=== PATIENT | female | born 1940 | race Caucasian/White ===

== ENCOUNTER 2022-12-29 11:13 | Emergency (ER) | payer OTHER, SELFPAY ==
--- NOTE | ~2022-12-29 | CT_ITS ---
EXAMINATION: CT HEAD WITHOUT CONTRAST CLINICAL INFORMATION: Head pain status post fall. COMPARISON: None TECHNIQUE: Contiguous axial imaging was performed from the skull base to vertex without intravenous administration of contrast. Coronal and sagittal reformatted images were obtained. This CT examination was performed using dose optimization techniques as appropriate, variously including the following: *Automated exposure control *Adjustment of mA and/or kV according to patient size (this includes techniques or standardized protocols for targeted exams where dose is matched to indication/reason for exam; i.e. extremities or head) *Use of iterative reconstruction technique DLP: 675.28 mGy-cm FINDINGS: There is mild widening of the cortical sulci and associated ventriculomegaly. The lateral ventricles are symmetrical. The third and fourth ventricles are in their normal midline position. The basilar and prepontine cisterns are unremarkable. Mild periventricular microvascular changes are seen. There is no acute intra or extracerebral abnormality. There is no mass effect or midline shift. Sections through the bony calvarium show a small left parietal the table osteoma versus calcified meningioma without surrounding abnormality. There is a small to moderate left posterior parietal occipital subgaleal hematoma without underlying abnormality. The orbits are intact. The paranasal sinuses are clear. The mastoid air cells are clear. CT/CT head/brain wo IV con IMPRESSION: 1. No acute intracranial pathology. 2. Small to moderate left posterior parietal occipital subgaleal hematoma without underlying abnormality.
--- NOTE | ~2022-12-29 | CT_ITS ---
EXAMINATION: CT CERVICAL SPINE WITHOUT CONTRAST CLINICAL INFORMATION: Fall with pain COMPARISON: None TECHNIQUE: Axial imaging with coronal and sagittal reformatted images. This CT examination was performed using dose optimization techniques as appropriate, variously including the following: *Automated exposure control *Adjustment of mA and/or kV according to patient size (this includes techniques or standardized protocols for targeted exams where dose is matched to indication/reason for exam; i.e. extremities or head) *Use of iterative reconstruction technique DLP: 686 mGy-cm FINDINGS: Negative for acute fracture or dislocation. Degenerative change most noted at C3-4. CT/CT cervical spine wo IV con IMPRESSION: No acute fracture or dislocation.
[2022-12-29 11:21] VITALS: BP 143/84; BP 190/120; PULSE 72; PULSE 76; RESP 18; TEMP 36.6; O2SAT 95; O2SAT 98; BMI 28.3
--- NOTE | 2022-12-29 11:26 | ECG_ITS ---
Test Reason : fall Blood Pressure : / mmHG Vent. Rate : 068 BPM Atrial Rate : 068 BPM P-R Int : 180 ms QRS Dur : 144 ms QT Int : 450 ms P-R-T Axes : 054 057 001 degrees QTc Int : 478 ms Sinus rhythm with occasional Premature ventricular complexes and Premature atrial complexes Right bundle branch block Nonspecific ST and T wave abnormality Abnormal ECG No previous ECGs available Referred By: Ysabel Helms Electronically Signed By:ARRON TURK
--- NOTE | 2022-12-29 12:02 | ED_ITS ---
HPI - Fall General Chief Complaint: Fall Stated Complaint: Fall on side of road, poss hit head per EMS Time Seen by Provider: 12/29/22 11:24 Source: patient and EMS Mode of arrival: EMS Limitations: no limitations History of Present Illness HPI Narrative: this is an 82-year-old female with history of hypothyroidism, hypertension who presents to the ER after slip and fall down an embankment. Patient reports she was taking pictures of geese when she lost her balance causing her to fall landing on her back and head. There was no loss of consciousness. Patient reports of upper back discomfort. She denies any headache, vomiting, neck pain, chest pain, abdominal pain. No AC therapy use. Related Data Allergies Allergy/AdvReac Type Severity Reaction Status Date / Time cephalexin [From Keflex] Allergy Rash Verified 12/29/22 11:27 Review of Systems Review of Systems: Yes all other systems are reviewed and are negative Constitutional: Constitutional: Reports no additional constitutional complaints, Denies body ache(s), Denies chills, Denies fever(s), Denies headache(s) and Denies weakness Eyes: Eyes: Reports no additional eye complaints and Denies change in vision ENT: Reports system reviewed and no additional complaints, except as documented, Denies dizziness, Denies headache(s), Denies nasal congestion, Denies nasal discharge and Denies neck pain Cardiovascular: Cardiovascular: Reports no additional cardiovascular complaints, Denies chest pain, Denies leg edema and Denies dyspnea Respiratory: Respiratory: Reports no additional respiratory complaints, Denies cough and Denies dyspnea Gastrointestinal: Gastrointestinal: Reports no additional gastrointestinal complaints, Denies abdominal pain, Denies diarrhea, Denies nausea and Denies vomiting Genitourinary: Genitourinary: Reports no additional female genitourinary complaints and Denies urinary incontinence Musculoskeletal: Musculoskeletal: Reports no additional musculoskeletal complaints, Reports back pain, Denies arthralgias, Denies joint swelling, Denies neck pain, Denies numbness and Denies tingling Integumentary/Breasts: Skin/Breast: Reports system reviewed and no additional complaints, except as docu and Denies rash Neurologic: Reports system reviewed and no additional complaints, except as documented, Denies Abnormal speech present, Denies dizziness, Denies headache(s), Denies numbness, Denies tingling and Denies weakness PMFSH Past Medical History Attestation statement: The following information was validated with the patient. Source: old records reviewed and nursing notes reviewed Social History Social History Advance Directives: No Advance Directives Information Provided: Yes Physical Exam Vital Signs: Vital Signs: Last Vital Signs Temp 97.8 F 12/29/22 11:21 Pulse 72 12/29/22 11:21 Resp 18 12/29/22 11:21 BP 143/84 H 12/29/22 11:21 Pulse Ox 95 12/29/22 11:21 O2 Del Method 12/29/22 11:21 BMI result Body Mass Index 28.3 Const: General: cooperative, healthy appearing, comfortable and no acute distress Orientation/consciousness: patient oriented x3 Limitations: no limitations HEENT: Head: Yes normal to inspection, No Carmichael's sign and No raccoon eyes Ears: hearing grossly normal bilaterally and TM's normal bilaterally General nose exam: Normal external nose present Face and sinus: Yes normal facial exam Mouth: Normal oral and palatal mucosa present Throat: Yes posterior oropharynx normal Eyes: General: appearance normal, both eyes and all related structures Pupils: Equal, round and reactive pupils present Neck: Other: Cervical collar in place. No midline tenderness, step-offs deformities Neck: Yes normal visual inspection Chest: Chest palpation & inspection: normal inspection of the chest Resp: Effort & Inspection: normal respiratory effort Auscultation: clear to auscultation bilaterally Cardio: Rate: regular rate Rhythm: regular rhythm Peripheral pulses: Peripheral pulses 2+ throughout GI: Inspection: Yes normal to inspection Palpation (GI): Soft to palpation and nontender Auscultation: normal bowel sounds Back/Spine/Pelvis: Other: abrasion to the upper back. No midline tenderness, step-offs or deformities Thoracic/Lumbar Spine: thoracic and lumbar spine normal to inspection Skin: General skin exam: no rashes or lesions noted Neuro: General: patient oriented x3, moves all extremities, no focal motor deficits, normal sensation to monofilament and Unable to assess gait Cranial nerves: Yes CN's II-XII intact bilaterally, Yes Equal, round and reactive pupils present, Yes Bilaterally intact EOM present, Yes Nystagmus not present, Yes Normal facial strength present and Yes Midline tongue present Cognition (Neuro): normal cognition Speech: No Abnormal speech present Gait exam (Neuro): Unable to assess gait Motor exam (neuro): 5/5 motor strength present throughout Sensory Exam: Normal double simultaneous stimulation for sensation Extrem: General: Yes normal to inspection Course Course Course Narrative: CT head and cervical spine show no acute finding. plan for discharge home. Reviewed worrisome signs and symptoms of when to return to the emergency room. Comfortable plan for discharge home (assisted living. Medications Administered Discontinued Medications Generic Name Dose Route Start Last Admin Trade Name Freq PRN Reason Stop Dose Admin Acetaminophen 650 mg 12/29/22 14:01 12/29/22 14:06 Acetaminophen 325 Mg Tablet PO 12/29/22 14:02 650 mg ONCE ONE Administration Medical Decision Making Medical Decision Making [facility] Narrative: this is an 82-year-old female who had a mechanical fall with a head strike with no loss of consciousness. She has a normal neurological exam. She is mildly hypertensive and believe she did take her blood pressure medication this morning. Will obtain CT head and cervical spine. Differential Diagnosis Differential Diagnoses: The differential diagnosis associated with the presentation includes Mechanical fall, contusion, intracranial hemorrhage Lab Data [facility] Lab Attestation statement: I reviewed the patient's lab results. Independent Interpretation I performed an independent interpretation of an: CT Scan Interpretation: I independently reviewed the CT of the head and cervical spine and agree with radiologist's report I independently reviewed the EKG and it shows sinus rhythm with occasional PVCs and PACs with right bundle-branch block, nonspecific ST changes Radiology Impression Discussion of test interpretation with radiology: I have reviewed the radiologist's reading. Radiologist Impression: OMPARISON: None? TECHNIQUE: Axial imaging with coronal and sagittal reformatted images.? This CT examination was performed using dose optimization techniques as appropriate, variously including the following: *Automated exposure control *Adjustment of mA and/or kV according to patient size (this includes techniques or standardized protocols for targeted exams where dose is matched to indication/reason for exam; i.e. extremities or head) *Use of iterative reconstruction technique DLP: 686 mGy-cm FINDINGS: Negative for acute fracture or dislocation. Degenerative change most noted at C3-4. CT/CT cervical spine wo IV con IMPRESSION: No acute fracture or dislocation.? ? ? There is mild widening of the cortical sulci and associated ventriculomegaly. The lateral ventricles are symmetrical. The third and fourth ventricles are in their normal midline position. The basilar and prepontine cisterns are unremarkable. Mild periventricular microvascular changes are seen. There is no acute intra or extracerebral abnormality. There is no mass effect or midline shift. Sections through the bony calvarium show a small left parietal the table osteoma versus calcified meningioma without surrounding abnormality. There is a small to moderate left posterior parietal occipital subgaleal hematoma without underlying abnormality. The orbits are intact. The paranasal sinuses are clear. The mastoid air cells are clear. CT/CT head/brain wo IV con IMPRESSION: 1.? No acute intracranial pathology. 2.? Small to moderate left posterior parietal occipital subgaleal hematoma without underlying abnormality. ? Independent Historian Clinical information obtained from an independent historian. History obtained from or confirmed by: EMS Discharge Plan Discharge Clinical Impression: Contusion of head Patient Disposition: Home, Self-Care Instructions: Contusion in Adults (ED) Additional Instructions: your CT scan of your head and neck are normal take Tylenol for pain as needed follow-up with your primary care doctor after your ER visit Referrals: Sagrario Tirado PA [Primary Care Provider] - 1 week Interventions: ED Discharge Assessment Last Done: 12/29/22 14:10 Discharge Date/Time: 12/29/22 14:10
[2022-12-29] MEDS: Acetaminophen 325 MG TABLET 650 MG PO (14:06)
== END 2022-12-29 14:10 | disposition home or self-care (01) ==
PROVIDERS: Emergency Provider Emergency Medicine; PCP Physician Assistant
DX: S00.93XA Contusion of unspecified part of head, initial encounter (principal); S20.229A Contusion of unspecified back wall of thorax, initial encounter; W17.81XA Fall down embankment (hill), initial encounter; Y93.89 Activity, other specified; Y92.89 Other specified places as the place of occurrence of the external cause; Y99.9 Unspecified external cause status; I10 Essential (primary) hypertension; E03.9 Hypothyroidism, unspecified
CPT/HCPCS: 70450; 72125; 93005; 99284

== ENCOUNTER 2024-06-06 22:06 | Emergency (ER) | payer MEDICARE, SELFPAY ==
--- NOTE | ~2024-06-06 | CT_ITS ---
EXAMINATION: HEAD CT WITHOUT CONTRAST CERVICAL SPINE CT WITHOUT CONTRAST CLINICAL INFORMATION: Fall. COMPARISON: None. TECHNIQUE: Contiguous axial imaging of the head was performed without the administration of IV contrast. Axial multidetector volumetric images were also performed through the cervical spine without intravenous contrast. Multiplanar reconstructed images in coronal and sagittal orientations were submitted. This CT examination was performed using dose optimization techniques as appropriate, variously including the following: *Automated exposure control *Adjustment of mA and/or kV according to patient size (this includes techniques or standardized protocols for targeted exams where dose is matched to indication/reason for exam; i.e. extremities or head) *Use of iterative reconstruction technique DOSE: 918 mGy-cm FINDINGS: HEAD: There is no evidence of acute intracranial hemorrhage or territorial infarction. No abnormal mass-effect or midline shift. No extra-axial fluid collections. Patterson to white matter differentiation is well preserved. Moderate enlargement of the ventricles, sulci, and extra-axial CSF spaces is indicative of parenchymal volume loss. Multiple areas of hypoattenuation in the subcortical and periventricular white matter are most consistent with chronic microangiopathic changes. Calcific atherosclerosis is present within the cavernous segments of the internal carotid arteries. An 8 mm calcification along the inner table of the left parietal calvarium is unchanged and likely corresponds to a small calcified meningioma. Globes are aphakic. Imaged portions of the orbits are unremarkable. There is a small linear band of soft tissue attenuation at the scalp over the left frontotemporal calvarium which may correspond to a soft tissue contusion or scar tissue from prior injury. No hematomas. Calvarium is intact. The sinuses and mastoid air cells are clear. 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 CERVICAL SPINE: Vertebral body heights are normal. No fractures of the vertebral bodies or posterior elements. No acute subluxation. There is grade 1 anterolisthesis of C7 on T1 and T1 on T2. The craniocervical and atlantoaxial articulations are normal. Moderate to severe degenerative disc disease at C3-C4 with more [id number] degenerative disc disease at C4-C5 and C5-C6. Multilevel facet arthropathy. Posterior disc osteophyte complexes produce central canal narrowing at C3-C4. Mild multifocal neural foraminal stenoses. No significant paravertebral soft tissue swelling. Atherosclerotic calcifications are present in the carotid arteries. Imaged portions of the lung apices are clear. CT/CT cervical spine wo IV con IMPRESSION: 1. No acute intracranial pathology. Possible small soft tissue contusion of the left parietal region. No fractures. Moderate cerebral atrophy and chronic white matter microangiopathy. 2. No acute fracture or acute malalignment in the cervical spine. Multilevel degenerative spondylosis in the cervical spine.
--- NOTE | ~2024-06-06 | CT_ITS ---
EXAMINATION: HEAD CT WITHOUT CONTRAST CERVICAL SPINE CT WITHOUT CONTRAST CLINICAL INFORMATION: Fall. COMPARISON: None. TECHNIQUE: Contiguous axial imaging of the head was performed without the administration of IV contrast. Axial multidetector volumetric images were also performed through the cervical spine without intravenous contrast. Multiplanar reconstructed images in coronal and sagittal orientations were submitted. This CT examination was performed using dose optimization techniques as appropriate, variously including the following: *Automated exposure control *Adjustment of mA and/or kV according to patient size (this includes techniques or standardized protocols for targeted exams where dose is matched to indication/reason for exam; i.e. extremities or head) *Use of iterative reconstruction technique DOSE: 918 mGy-cm FINDINGS: HEAD: There is no evidence of acute intracranial hemorrhage or territorial infarction. No abnormal mass-effect or midline shift. No extra-axial fluid collections. Patterson to white matter differentiation is well preserved. Moderate enlargement of the ventricles, sulci, and extra-axial CSF spaces is indicative of parenchymal volume loss. Multiple areas of hypoattenuation in the subcortical and periventricular white matter are most consistent with chronic microangiopathic changes. Calcific atherosclerosis is present within the cavernous segments of the internal carotid arteries. An 8 mm calcification along the inner table of the left parietal calvarium is unchanged and likely corresponds to a small calcified meningioma. Globes are aphakic. Imaged portions of the orbits are unremarkable. There is a small linear band of soft tissue attenuation at the scalp over the left frontotemporal calvarium which may correspond to a soft tissue contusion or scar tissue from prior injury. No hematomas. Calvarium is intact. The sinuses and mastoid air cells are clear. 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 CERVICAL SPINE: Vertebral body heights are normal. No fractures of the vertebral bodies or posterior elements. No acute subluxation. There is grade 1 anterolisthesis of C7 on T1 and T1 on T2. The craniocervical and atlantoaxial articulations are normal. Moderate to severe degenerative disc disease at C3-C4 with more [id number] degenerative disc disease at C4-C5 and C5-C6. Multilevel facet arthropathy. Posterior disc osteophyte complexes produce central canal narrowing at C3-C4. Mild multifocal neural foraminal stenoses. No significant paravertebral soft tissue swelling. Atherosclerotic calcifications are present in the carotid arteries. Imaged portions of the lung apices are clear. CT/CT head/brain wo IV con IMPRESSION: 1. No acute intracranial pathology. Possible small soft tissue contusion of the left parietal region. No fractures. Moderate cerebral atrophy and chronic white matter microangiopathy. 2. No acute fracture or acute malalignment in the cervical spine. Multilevel degenerative spondylosis in the cervical spine.
[2024-06-06 22:14] VITALS: BP 136/88; PULSE 72; O2SAT 99
[2024-06-06 22:16] VITALS: BMI 31.4
--- NOTE | 2024-06-06 22:19 | MHC.EDTECH ---
Walked patient to bathroom changed pull up
[2024-06-06 22:20] VITALS: BP 170/79; PULSE 76; RESP 18; TEMP 36.3; O2SAT 98
[2024-06-06 23:33] VITALS: BP 166/70; PULSE 63; RESP 16; TEMP 36.6; O2SAT 98
--- NOTE | 2024-06-06 23:55 | ED.FALL ---
HPI - Fall General Chief Complaint: Fall Stated Complaint: from home, fall about an hour prior Time Seen by Provider: 06/06/24 23:03 Source: patient Mode of arrival: EMS Limitations: no limitations History of Present Illness ED Provider: ko LIMON Narrative: Patient apparently was walking with a dog went upstairs had problems with balance supposed to use cane was holding her cane to the railing lost balance and fell hitting her right side of the back of the head to the railing with a laceration no loss of consciousness no dizziness no other injuries patient ambulatory otherwise Related Data Allergies Allergy/AdvReac Type Severity Reaction Status Date / Time cephalexin [From Keflex] Allergy Rash Verified 06/06/24 22:25 Review of Systems Review of Systems: Yes all other systems are reviewed and are negative [facility] Social History Social History Alcohol intake: current Alcohol intake frequency: 0-2 drinks per day Alcohol type: wine Smoked in Last 30 Days: No Use of substances other than those prescribed or required for medical reasons: No Advance Directives: No Advance Directives Information Provided: Yes Physical Exam Vital Signs: Vital Signs: Last Vital Signs Temp 97.8 F 06/06/24 23:33 Pulse 63 06/06/24 23:33 Resp 16 06/06/24 23:33 BP 166/70 H 06/06/24 23:33 Pulse Ox 98 06/06/24 23:33 O2 Del Method Room Air 06/06/24 23:33 BMI result Body Mass Index 31.4 Appearance: Alert. Oriented X3. No acute distress. Eyes: PERRLA, No Nystagmus ENT: Pharynx normal. Oral Mucosa moist 1 in laceration right occipital area Neck: Normal inspection. Neck supple. No midline tenderness CVS: Normal heart rate and rhythm. Pulses normal. Respiratory: No respiratory distress. Equal air entry bilateral, no wheezing/rales/rhonchi Abdomen: Soft and nontender. Bowel sounds are present, no mass palpable, no CVA tenderness Skin: Skin warm and dry. Normal skin color. Normal skin turgor. Extremities: No lower extremity edema. No calf tenderness Neuro: Oriented X 3. No motor deficit. No sensory deficit.No cerebellar signs , cranial nerves II-XII intact steady gait Procedures Laceration Laceration 1: Site: scalp Side (If applicable): right Description: linear Depth: simple, single layer Skin layer closed with: other (Claudia#[id number]) Medical Decision Making Independent Interpretation I performed an independent interpretation of an: CT Scan Radiology Impression Discussion of test interpretation with radiology: I have reviewed the radiologist's reading. Discharge Plan Discharge Clinical Impression: Fall (on) (from) other stairs and steps, initial encounter, Laceration of scalp Patient Disposition: Home, Self-Care Instructions: Laceration (ED), Fall Prevention for Older Adults (ED) Additional Instructions: Local care as advised Staple removal in 7-10 days Print Language: Brazilian
[2024-06-07 00:17] VITALS: BP 166/70; PULSE 63; RESP 16; TEMP 36.6; O2SAT 98
== END 2024-06-07 00:17 | disposition home or self-care (01) ==
PROVIDERS: Emergency Provider Internal Medicine; PCP Physician Assistant
DX: S01.01XA Laceration without foreign body of scalp, initial encounter (principal); W10.8XXA Fall (on) (from) other stairs and steps, initial encounter; Y93.K1 Activity, walking an animal; Y92.038 Other place in apartment as the place of occurrence of the external cause; Y99.9 Unspecified external cause status
CPT/HCPCS: 12001; 70450; 72125; 99284

== ENCOUNTER 2024-09-13 09:50 | Emergency (ER) | payer MEDICARE, SELFPAY ==
--- NOTE | ~2024-09-13 | XR_ITS ---
Exams: Right shoulder 3 views right elbow 3 views right humerus 2 views HISTORY: Fall. FINDINGS: Acute obliquely to fracture through the proximal diaphysis of the right humerus. No dislocation. No specific findings indicate a pathologic fracture. Scapula is intact. There is approximately 1 shaft width displacement and overriding noted. Overlying soft tissue swelling. Limited positioning of the elbow. No gross disruption. Radial head and neck intact. XR/XR humerus RT IMPRESSION: Acute fracture of the proximal humerus as above. Electronically signed by: Alfredo Horn MD 09/13/2024 11:54 AM [facility]EL[facility]
--- NOTE | ~2024-09-13 | XR_ITS ---
Exams: Right shoulder 3 views right elbow 3 views right humerus 2 views HISTORY: Fall. FINDINGS: Acute obliquely to fracture through the proximal diaphysis of the right humerus. No dislocation. No specific findings indicate a pathologic fracture. Scapula is intact. There is approximately 1 shaft width displacement and overriding noted. Overlying soft tissue swelling. Limited positioning of the elbow. No gross disruption. Radial head and neck intact. XR/XR shoulder RT min 2V IMPRESSION: Acute fracture of the proximal humerus as above. Electronically signed by: Alfredo Horn MD 09/13/2024 11:54 AM [facility] KEL[facility]
--- NOTE | ~2024-09-13 | CT_ITS ---
EXAM: Noncontrast CT scan of the head and cervical spine. INDICATION: Questionable head strike. COMPARISON: CT head and cervical spine June 06, 2024 TECHNIQUE: Axial slices were obtained from skull base to vertex and displayed. This was followed by helical, multislice, multidetector axial images from the occiput to the upper thorax. Coronal and sagittal reformats of the cervical spine in addition to coronal reformats of the head were obtained at the technologist workstation. DLP: 1071 mGy-cm FINDINGS: HEAD: There is no evidence of acute intracranial hemorrhage or territorial infarction. No abnormal mass effect or midline shift is appreciated. Patterson-white differentiation is well preserved. No extra-axial fluid collections. The ventricular system and cortical sulci are prominent, consistent with volume loss. There are areas of low density in the periventricular and subcortical white matter, most consistent with sequelae of microvascular ischemic change. The osseous structures and soft tissues are normal. There are calcifications of the cavernous internal carotid arteries. The visualized paranasal sinuses and mastoid air cells are well aerated. SPINE: The cervical spine is visualized in its entirety. There is exaggerated kyphosis again noted. Stable mild retrolisthesis of C3 on C4. Normal C1/2 articulation. Cervical vertebral body heights are maintained. Severe degenerative changes of the C3/4 disc space are again noted. There is mild diffuse facet hypertrophy bilaterally. No prevertebral soft tissue swelling. Visualized lung apices are well aerated. CT/CT cervical spine wo IV con IMPRESSION: 1. No acute intracranial pathology. 2. No fractures or dislocations of the cervical spine. Electronically signed by: Raúl Anderson MD 09/13/2024 10:54 AM [facility]
--- NOTE | ~2024-09-13 | CT_ITS ---
EXAM: Noncontrast CT scan of the head and cervical spine. INDICATION: Questionable head strike. COMPARISON: CT head and cervical spine June 06, 2024 TECHNIQUE: Axial slices were obtained from skull base to vertex and displayed. This was followed by helical, multislice, multidetector axial images from the occiput to the upper thorax. Coronal and sagittal reformats of the cervical spine in addition to coronal reformats of the head were obtained at the technologist workstation. DLP: 1071 mGy-cm FINDINGS: HEAD: There is no evidence of acute intracranial hemorrhage or territorial infarction. No abnormal mass effect or midline shift is appreciated. Patterson-white differentiation is well preserved. No extra-axial fluid collections. The ventricular system and cortical sulci are prominent, consistent with volume loss. There are areas of low density in the periventricular and subcortical white matter, most consistent with sequelae of microvascular ischemic change. The osseous structures and soft tissues are normal. There are calcifications of the cavernous internal carotid arteries. The visualized paranasal sinuses and mastoid air cells are well aerated. SPINE: The cervical spine is visualized in its entirety. There is exaggerated kyphosis again noted. Stable mild retrolisthesis of C3 on C4. Normal C1/2 articulation. Cervical vertebral body heights are maintained. Severe degenerative changes of the C3/4 disc space are again noted. There is mild diffuse facet hypertrophy bilaterally. No prevertebral soft tissue swelling. Visualized lung apices are well aerated. CT/CT head/brain wo IV con IMPRESSION: 1. No acute intracranial pathology. 2. No fractures or dislocations of the cervical spine. Electronically signed by: Raúl Anderson MD 09/13/2024 10:54 AM [facility] KEL[facility]
--- NOTE | ~2024-09-13 | XR_ITS ---
Exams: Right shoulder 3 views right elbow 3 views right humerus 2 views HISTORY: Fall. FINDINGS: Acute obliquely to fracture through the proximal diaphysis of the right humerus. No dislocation. No specific findings indicate a pathologic fracture. Scapula is intact. There is approximately 1 shaft width displacement and overriding noted. Overlying soft tissue swelling. Limited positioning of the elbow. No gross disruption. Radial head and neck intact. XR/XR elbow RT 2V IMPRESSION: Acute fracture of the proximal humerus as above. Electronically signed by: Alfredo Horn MD 09/13/2024 11:54 AM [facility]
--- NOTE | 2024-09-13 09:54 | ED.FALL ---
HPI - Fall General Chief Complaint: Fall Stated Complaint: R ARM PAIN Time Seen by Provider: 09/13/24 09:51 Source: patient and EMS Mode of arrival: EMS Limitations: no limitations History of Present Illness ED Provider: Ysabel Helms APRN HPI Narrative: 83-year-old female with a history of diabetes, high cholesterol, gastric reflux presents to the ER with complaints of right upper extremity pain. Patient reports that she was seen at [facility] yesterday after having a mechanical fall. She was diagnosed with a right humeral fracture and placed in a splint and discharged home with a prescription for oxycodone. Patient reports today she was walking through a doorway when she lost her balance falling into the right wall hitting the right upper extremity. She is unsure if she hit her head. She denies any other additional injury. She denies any fall to the ground. She presents to the ER with complaints of right upper extremity pain. On arrival patient reports feeling nauseous. She has had no vomiting. Her last dose of oxycodone was last evening. She denies headache, neck pain, back pain, abdominal pain, chest pain, weakness/numbness/tingling of the extremity. She is right-handed Of note, patient is currently residing in a assisted living facility Onset (ago): month(s) Severity: mild Quality: sharp and spasming Related Data Allergies Allergy/AdvReac Type Severity Reaction Status Date / Time cephalexin [From Keflex] Allergy Rash Verified 09/13/24 09:59 Review of Systems Review of Systems: Yes all other systems are reviewed and are negative Constitutional: Constitutional: Reports no additional constitutional complaints, Denies body ache(s), Denies chills, Denies fever(s), Denies headache(s) and Denies weakness Eyes: Eyes: Reports no additional eye complaints and Denies change in vision ENT: Reports system reviewed and no additional complaints, except as documented, Denies dizziness, Denies headache(s), Denies nasal congestion, Denies nasal discharge and Denies neck pain Cardiovascular: Cardiovascular: Reports no additional cardiovascular complaints, Denies chest pain, Denies leg edema and Denies dyspnea Respiratory: Respiratory: Reports no additional respiratory complaints, Denies cough and Denies dyspnea Gastrointestinal: Gastrointestinal: Reports no additional gastrointestinal complaints, Denies abdominal pain, Denies diarrhea, Denies nausea and Denies vomiting Genitourinary: Genitourinary: Reports no additional female genitourinary complaints and Denies urinary incontinence Musculoskeletal: Musculoskeletal: Reports no additional musculoskeletal complaints, Denies back pain, Reports arthralgias, Denies joint swelling, Reports limited range of motion, Denies neck pain, Denies numbness and Denies tingling Integumentary/Breasts: Skin/Breast: Reports system reviewed and no additional complaints, except as docu and Denies rash Neurologic: Reports system reviewed and no additional complaints, except as documented, Denies Abnormal speech present, Denies dizziness, Denies headache(s), Denies numbness, Denies tingling and Denies weakness PMFSH Past Medical History Attestation statement: The following information was validated with the patient. Source: old records reviewed and nursing notes reviewed Social History Social History Alcohol intake: current Alcohol intake frequency: 0-2 drinks per day Alcohol type: wine Smoked in Last 30 Days: No Use of substances other than those prescribed or required for medical reasons: No Advance Directives: No Advance Directives Information Provided: Yes Do you have a plan to hurt others: No Plan Physical Exam Vital Signs: Vital Signs: Last Vital Signs Temp 98.5 F 09/13/24 12:49 Pulse 92 09/13/24 12:49 Resp 16 09/13/24 12:49 BP 122/46 L 09/13/24 12:49 Pulse Ox 91 L 09/13/24 12:49 O2 Del Method Room Air 09/13/24 12:49 BMI result Body Mass Index 34.2 Const: General: cooperative, healthy appearing, comfortable and no acute distress Orientation/consciousness: patient oriented x3 Limitations: no limitations HEENT: Other: No hemotympanum Head: Yes normal to inspection, No Carmichael's sign and No raccoon eyes Ears: hearing grossly normal bilaterally and TM's normal bilaterally General nose exam: Normal external nose present Face and sinus: Yes normal facial exam Mouth: Normal oral and palatal mucosa present Throat: Yes posterior oropharynx normal Eyes: General: appearance normal, both eyes and all related structures Pupils: Equal, round and reactive pupils present Neck: Other: No cervical midline tenderness, step-offs or deformities Neck: Yes normal visual inspection Chest: Chest palpation & inspection: normal inspection of the chest Resp: Effort & Inspection: normal respiratory effort Auscultation: clear to auscultation bilaterally Cardio: Rate: regular rate Rhythm: regular rhythm Peripheral pulses: Peripheral pulses 2+ throughout GI: Inspection: Yes normal to inspection Palpation (GI): Soft to palpation and nontender Auscultation: normal bowel sounds Back/Spine/Pelvis: Thoracic/Lumbar Spine: thoracic and lumbar spine normal to inspection Skin: General skin exam: no rashes or lesions noted Neuro: General: patient oriented x3, moves all extremities, no focal motor deficits and normal sensation to monofilament Cranial nerves: Yes CN's II-XII intact bilaterally, Yes Equal, round and reactive pupils present, Yes Bilaterally intact EOM present, Yes Nystagmus not present, Yes Normal facial strength present and Yes Midline tongue present Cognition (Neuro): normal cognition Speech: No Abnormal speech present Motor exam (neuro): 5/5 motor strength present throughout Sensory Exam: Normal double simultaneous stimulation for sensation Extrem: Other: Splint is removed-there is ecchymosis noted over the right upper extremity with a deformity noted of the mid humerus. There is no open areas or abrasions. Limited range of motion due to pain. There is no pain on palpation over the right elbow, forearm, wrist or hand. 2+ radial and ulnar pulses. Normal sensation. General: Yes normal to inspection Course Course Course Narrative: Patient has had several falls at home. She lives in a independent assisted and has a large dog. She may need placement but family is undecided on what they would do with her dog care as they do not live close to her. Therefore will place a physical therapy evaluation and case management consult Reevaluation(s) Reevaluation #1: 1615-physical therapist outpatient recommended short-term rehab. Patient and family prefer to be discharged home with outpatient resources. Patient was seen by case management. Referrals will be placed to [facility] and family is comfortable being discharged home pending this. Patient has pain medicine at home and has follow-up with [facility] outpatient Medications Administered Discontinued Medications Generic Name Dose Route Start Last Admin Trade Name Freq PRN Reason Stop Dose Admin Sodium Chloride 500 mls @ 999 mls/hr 09/13/24 10:12 09/13/24 11:19 Ns IV 09/13/24 10:42 Infused .Q31M STA Infusion Morphine Sulfate 2 mg 09/13/24 10:12 09/13/24 10:25 Morphine Sulfate 2 Mg/Ml Cartridge IVPUSH 09/13/24 10:13 2 mg ONCE ONE Administration Protocol Ondansetron HCl 4 mg 09/13/24 10:12 09/13/24 10:25 Ondansetron Hcl 4 Mg/2 Ml Vial IVPUSH 09/13/24 10:13 4 mg ONCE ONE Administration Procedures Orthopedic Splinting/Casting Injury #1: Side: right Upper Extremity Injury Location: upper arm Upper Extremity Immobilizer: sugar tong splint Medical Decision Making Medical Decision Making MDM Narrative: 83-year-old female right-hand dominant diagnosed with a right mid shaft humeral fracture yesterday at [facility] after mechanical fall presents to the ER with complaints of right upper extremity pain after a loss of balance and strike of the right upper extremity on a nearby wall. Unclear if there was any head strike. +nausea on arrival Neuro exam is normal Vitals are normal Splint is removed. Significant swelling and ecchymosis with normal CMS. Will obtain records [place] [facility] Will obtain CT head/CT cervical spine, x-rays of right upper extremity. Sling was applied. Will provide analgesia, antiemetics Differential Diagnosis Differential Diagnoses: The differential diagnosis associated with the presentation includes Fracture Low suspicion for vascular injury, dislocation Admission/Observation Consideration of admission/observation: Escalation of care including admission/observation considered See course of care Consult Healthcare Provider Management of the patient was discussed with: [facility] Specialist Spoke to orthopedics-Mirlande THOMAS-recommended splint with sling Independent Interpretation I performed an independent interpretation of an: Plain X-Ray and CT Scan Interpretation: I independently viewed the CT scan/x-ray agree with the radiology report Radiology Impression Discussion of test interpretation with radiology: I have reviewed the radiologist's reading. 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 INDICATION: Questionable head strike. COMPARISON: CT head and cervical spine June 06, 2024 TECHNIQUE: Axial slices were obtained from skull base to vertex and displayed. This was followed by helical, multislice, multidetector axial images from the occiput to the upper thorax. Coronal and sagittal reformats of the cervical spine in addition to coronal reformats of the head were obtained at the technologist workstation. DLP: 1071 mGy-cm FINDINGS: HEAD: There is no evidence of acute intracranial hemorrhage or territorial infarction. No abnormal mass effect or midline shift is appreciated. Patterson-white differentiation is well preserved. No extra-axial fluid collections. The ventricular system and cortical sulci are prominent, consistent with volume loss. There are areas of low density in the periventricular and subcortical white matter, most consistent with sequelae of microvascular ischemic change. The osseous structures and soft tissues are normal. There are calcifications of the cavernous internal carotid arteries. The visualized paranasal sinuses and mastoid air cells are well aerated. SPINE: The cervical spine is visualized in its entirety. There is exaggerated kyphosis again noted. Stable mild retrolisthesis of C3 on C4. Normal C1/2 articulation. Cervical vertebral body heights are maintained. Severe degenerative changes of the C3/4 disc space are again noted. There is mild diffuse facet hypertrophy bilaterally. No prevertebral soft tissue swelling. Visualized lung apices are well aerated. CT/CT head/brain wo IV con IMPRESSION: 1. No acute intracranial pathology. 2. No fractures or dislocations of the cervical spine. [address] [address] XRay Report Signed Patient: Sri Gonzalez MR#: [id number] : 1940 Acct:[id number] Age/Sex: 83 / F ADM Date: 09/13/24 Loc: HO.ED Attending Dr: Ordering Physician: Ysabel Helms NP Date of Service: 09/13/24 Procedure(s): XR elbow RT 2V Accession Number(s): [id number] cc: Ysabel Helms NP; Physician,Unknown ~ Exams: Right shoulder 3 views right elbow 3 views right humerus 2 views HISTORY: Fall. FINDINGS: Acute obliquely to fracture through the proximal diaphysis of the right humerus. No dislocation. No specific findings indicate a pathologic fracture. Scapula is intact. There is approximately 1 shaft width displacement and overriding noted. Overlying soft tissue swelling. Limited positioning of the elbow. No gross disruption. Radial head and neck intact. XR/XR elbow RT 2V IMPRESSION: Acute fracture of the proximal humerus as above. Independent Historian Clinical information obtained from an independent historian. History obtained from or confirmed by: EMS External Record Review External record reviewed: Outside ED record Prescription Management I considered prescription management with: Pain Medication Social Determinants Patient?s care significantly limited by Social Determinants of Health including: Problems related to primary support group and Other Social Determinant of Health Discharge Plan Discharge Clinical Impression: Humeral shaft fracture Patient Disposition: Home, Self-Care Instructions: Arm Fracture in Adults (ED), Splint Care (ED) Additional Instructions: Keep the splint on at all times. Do not get it wet. You may take the sling on and off for comfort as needed. Take the pain medicine at home as needed for pain Continue with the plan to follow up outpatient with Orthopedics. You may return here any time for any additional concerns Referrals: Physician,Unknown J [Primary Care Provider] - 1 week Print Language: Korean
[2024-09-13 09:55] VITALS: BP 140/90; BP 152/97; PULSE 100; PULSE 98; RESP 18; TEMP 36.8; O2SAT 93; O2SAT 95; BMI 34.2
--- NOTE | 2024-09-13 10:06 | PC.NURSE ---
manoj from [facility] living d/t unwitnessed fall yesterday - EMS reports pt got wrapped in dog leash, fell onto ground. pt then went to [facility] and had +fracture in RUE. pt represents today after same exact scenario except instead of falling on ground, she fell into a bookshelf after getting tangled in a dog leash. -headsrike, -loc, -thinners x both days. upon ED arrival - a&ox4. vss and up to date. nsr on the diagnostic cardiac sonographer. pt presents to ED w/ mangled cast placed by [facility]. not intact. stains noted to cast - pt reports spilling iced tea onto cast. pt verbalizing 10/10 pain. tender w/ palpation. cms intact. pulses palpable. cast from [facility] removed by ED provider. new sling placed to RUE by tech. pt tolerated well. pt verbalizes that she has not been able to take medication that was prescribed by [facility] d/t limited access at assisted living facility. pt seemingly uncomfortable but on RA w/o difficulty - no sob/wob noted. respirations even/unlabored. plan of care ongoing. call benoit placed within reach.
[2024-09-13] MEDS: ondansetron HCL 4 MG/2 ML VIAL IVPUSH (10:25)
[2024-09-13] MEDS: Morphine Sulfate 2 MG/ML CARTRIDGE IVPUSH (10:25)
[2024-09-13] MEDS: 0.9 % Sodium Chloride 500 ML 999 ML IV (10:25)
--- NOTE | 2024-09-13 10:27 | PC.NURSE ---
20gIV placed in the left AC - medication IVF administered per provider order. effectiveness pending. pt to CT/xray at this time.
[2024-09-13 12:49] VITALS: BP 122/46; PULSE 92; RESP 16; TEMP 36.9; O2SAT 91
--- NOTE | 2024-09-13 12:52 | PC.NURSE ---
cast applied to RUE by provider. pt tolerated well. vss and up to date aside from being slightly tachycardic on the monitor. HR between 100-110bpm. pt denies chest pain/palpitations. provider spoke w/ pt as well as family in regards to plan of care moving forward. PT/CM consult placed. plan of care ongoing. call benoit placed within reach.
--- NOTE | 2024-09-13 16:02 | PC.NURSE ---
PT ortiz completed - PT recommending STR. patient as well as pt's son speaking w/ CM in regards to plan of care moving forward at this time.
[2024-09-13 16:27] VITALS: BP 130/64; PULSE 94; RESP 16; TEMP 36.8; O2SAT 96
[2024-09-13 16:44] VITALS: BP 130/64; PULSE 94; RESP 16; TEMP 36.8; O2SAT 96
--- NOTE | 2024-09-14 10:34 | MHC.CM.PN ---
Late charting CM met with patient and her son/HCP, Archie in the ER 09/13/24. DP return to [facility] with extra support arranged by family. PT eval rec home with services. [facility]. Patients son Archie has been notified via today 09/14/24, that services will start on Sunday. [facility] and [facility] have been sent referrals asking if the patient is eligible to use [facility] . Contact info for [facility] provided to both of the facilities.
== END 2024-09-13 16:44 | disposition home or self-care (01) ==
PROVIDERS: Emergency Provider Emergency Medicine
DX: S42.334A Nondisplaced oblique fracture of shaft of humerus, right arm, initial encounter for closed fracture (principal); W01.198A Fall on same level from slipping, tripping and stumbling with subsequent striking against other object, initial encounter; Z91.81 History of falling; Y93.89 Activity, other specified; Y92.099 Unspecified place in other non-institutional residence as the place of occurrence of the external cause; Y99.9 Unspecified external cause status
CPT/HCPCS: 70450; 72125; 73030; 73060; 73070; 96361; 96374; 96375; 97163; 99285; J2270; J2405

== ENCOUNTER 2025-05-13 08:28 | Emergency (ER) | payer MEDICARE, SELFPAY ==
--- NOTE | ~2025-05-13 | CT_ITS ---
EXAMINATION: CT CHEST WITHOUT CONTRAST CLINICAL INFORMATION: Status post fall. Left-sided rib pain. COMPARISON: None available. TECHNIQUE: Multidetector volumetric CT imaging of the chest was done. Axial MIP volume rendering provided. Sagittal and coronal reformatted images were obtained. This CT examination was performed using dose optimization techniques as appropriate, variously including the following: *Automated exposure control *Adjustment of mA and/or kV according to patient size (this includes techniques or standardized protocols for targeted exams where dose is matched to indication/reason for exam; i.e. extremities or head) *Use of iterative reconstruction technique DLP: 235 mGy centimeter. FINDINGS: HAMMER DRIVER: Hyperinflated lungs. Cardiomediastinal silhouette size is enlarged likely related to a hiatal hernia. Patient's large body habitus. LUNGS: Linear attenuation abnormality is seen in the lower lung lobes, to a lesser extent right middle lung lobe and lingula. No bronchiectasis. No honeycombing. No gross pulmonary nodules. Respiratory airways patent. MEDIASTINUM: Mild prominent lymph nodes. Calcified plaques in the thoracic aorta. Calcified plaques in the main branches of the aorta mostly left subclavian artery. No aneurysm, abdominal aorta. Small volume pericardial effusion. No hemothorax. No pneumomediastinum. No hemopericardium. Hiatal hernia, moderate to large volume. The thyroid gland is not enlarged. CORONARY ARTERY CALCIFICATION: Calcified plaques. PLEURA: No pleural effusion. No pneumothorax. No hemothorax. No calcified pleural plaques. AXILLA: No lymphadenopathy. UPPER ABDOMEN: Hiatal hernia, moderate to large volume. Scattered diverticula, transverse colon. Probable small accessory spleen. Calcified plaques in the abdominal aorta and the origin of the right main renal artery. OSSEOUS STRUCTURES: Multilevel spondylosis without acute fracture or listhesis in the axial skeleton. Cortical irregularity in the posterior aspect of the left second rib near the costovertebral joint.. Old traumatic deformities with callus formation in the posterior aspect of the ribs, left hemithorax (third, fourth ribs). Sternum is intact. Scapula appears intact. CT/CT chest wo IV con IMPRESSION: Acute nondisplaced rib fracture at the costovertebral joint left second rib. No pneumothorax. Hiatal hernia, moderate to large volume. Coronary artery disease and atherosclerosis disease. Diverticular disease. Fleischner guidelines were followed. Electronically signed by: Herson Kingston MD 05/13/2025 09:35 AM EDT
--- NOTE | 2025-05-13 08:33 | ED_ITS ---
HPI - General Adult General Chief complaint: Fall Stated complaint: FALL LAST NOC,-HS,LOST BALANCE,L RIB PAIN,FROM JAVED Time Seen by Provider: 05/13/25 08:33 Source: patient and EMS Mode of arrival: EMS Limitations: no limitations History of Present Illness ED Provider: Isha Sandoval PA-C HPI narrative: Patient is an 84 year old assigned female at with a history of mild cognitive impairment, depression, and anemia presenting to the emergency department today with left sided rib pain. Patient states that last night she tripped and fell onto her bed on her left rib cage and has had pain ever since. Patient denies any head strike / loss of consciousness. Patient denies any dizziness, lightheadedness, abdominal pain, nausea, vomiting, fever, chills, blurry vision, double vision, loss of vision, chest pain, difficulty breathing, shortness of breath, back pain, night sweats, pain with urination, increased urinary frequency, increased urinary urgency, blood in her urine or stool, syncope or a near syncopal episode, bowel incontinence, bladder incontinence, or any other complaints at this time. Relieving factors: none Exacerbating factors: none Associated symptoms: denies other symptoms Treatments prior to arrival: none Related Data Allergies Allergy/AdvReac Type Severity Reaction Status Date / Time bee pollen (bee stings) Allergy Unconscious Verified 05/13/25 08:39 cephalexin (From Keflex) Allergy Rash Verified 09/13/24 09:59 nut - unspecified Allergy Unknown Verified 05/13/25 08:39 Review of Systems 2 Constitutional: Constitutional: Reports no additional constitutional complaints, Denies chills, Denies fever(s) and Denies night sweats Eyes: Eyes: Reports no additional eye complaints, Denies blurry vision, Denies change in vision, Denies diplopia, Denies eye discharge, Denies loss of vision and Denies eye pain ENT: Denies dizziness Cardiovascular: Cardiovascular: Reports no additional cardiovascular complaints, Denies chest pain, Denies lightheadedness, Denies Loss of Consciousness and Denies dyspnea Respiratory: Respiratory: Reports no additional respiratory complaints and Denies dyspnea Gastrointestinal: Gastrointestinal: Reports no additional gastrointestinal complaints, Denies abdominal pain, Denies melena, Denies hematochezia, Denies change in bowel habits and Denies change in stool character Genitourinary: Genitourinary: Denies hematuria, Denies urinary frequency, Denies dysuria, Denies urinary incontinence, Denies urinary hesitancy and Denies urinary urgency Musculoskeletal: Musculoskeletal: Reports no additional musculoskeletal complaints, Denies numbness and Denies tingling Comments: left rib pain Neurologic: Denies dizziness, Denies loss of vision, Denies numbness and Denies tingling Psychiatric: Psychiatric: Reports no additional psychiatric complaints Endocrine: Endocrine: Reports no additional endocrine complaints Hematologic/Lymphatic: Hematologic/Lymphatic: Reports no additional hematologic/lymphatic complaints Allergic/Immunologic: Allergic/Immunologic: Reports no additional allergic/immunologic complaints [facility] Past Medical History Attestation statement: The following information was validated with the patient. Source: old records reviewed and nursing notes reviewed Social History Social History Alcohol intake: current Alcohol intake frequency: 0-2 drinks per day Alcohol type: wine Advance Directives: No Advance Directives Information Provided: Yes Physical Exam ED Vital Signs: Vital Signs - 24 hr 05/13/25 08:37 05/13/25 08:55 05/13/25 09:59 Temperature 98.1 F 98.1 F 98.3 F Pulse Rate 72 75 76 Respiratory Rate 14 13 16 Blood Pressure 183/77 H 159/63 H 173/72 H Pulse Oximetry 95 98 96 Oxygen Delivery Method Room Air Room Air Room Air BMI result Body Mass Index 32.2 Const General: cooperative, no acute distress, alert and awake Nutritional Appearance: well nourished Orientation/consciousness: patient oriented x3 HENMT Head: Yes normal to inspection and Yes atraumatic Ears: hearing grossly normal bilaterally and external ears normal General nose exam: Normal external nose present, no nasal discharge noted and no epistaxis Face and sinus: Yes normal facial exam, No abrasion and No laceration Mouth: Normal oral and palatal mucosa present, no drooling and no muffled voice Eyes General: appearance normal, both eyes and all related structures Periorbital: periorbital findings normal Eyelids: Yes eyelids normal Conjunctivae: conjunctivae normal Pupils: Equal, round and reactive pupils present EOM: EOMs intact bilaterally Neck Neck: Yes normal visual inspection, Yes full ROM and Yes no lymphadenopathy Resp Effort & Inspection: normal respiratory effort and able to speak in complete sentences Neuro General: patient oriented x3, moves all extremities and CN's II-XI intact bilaterally Cranial nerves: Yes Equal, round and reactive pupils present Cognition (Neuro): normal cognition Extrem General: Yes normal to inspection, Yes full ROM and Yes capillary refill normal Psych Appearance: grossly normal Mental Status: mental status grossly normal Affect: normal affect Attitude: cooperative Thought process: Normal thought process present Thought content: Normal thought content present Insight: Good insight present (Psych) Medications Administered Discontinued Medications Generic Name Dose Route Start Last Admin Trade Name Rocaelq PRN Reason Stop Dose Admin Ketorolac Tromethamine 15 mg 05/13/25 09:41 05/13/25 09:58 Ketorolac Tromethamine 15 Mg/Ml Vial IM 05/13/25 09:42 15 mg ONCE ONE Administration Medical Decision Making Medical Decision Making [facility] Narrative: Patient is an 84 year old assigned female at with a history of mild cognitive impairment, depression, and anemia presenting to the emergency department today with left sided rib pain. Patient's physical exam was unremarkable. Patient's blood work was unremarkable. Patient's EKG was unremarkable. Patient's CT chest showed an acute nondisplaced 2nd left rib fx. I explained my physical exam findings as well as all test results to the patient and the patient's son. I answered all questions asked by the patient and the patient's son. Patient was given incentive spirometer and demonstrated appropriate use in the department. I stressed the importance of the patient taking her medication as directed (either prescribed or as the over the counter packaging recommends). I stressed the importance of the patient following up with her primary care provider. I stressed the importance of the patient returning to the emergency department immediately if her symptoms were to worsen or if she were to develop any dizziness, shortness of breath, difficulty breathing, chest pain, blurry vision, loss of vision, nausea, vomiting, abdominal pain, fever, chills, back pain, or any other complaints. Patient and the patient's son verbalized agreement and understanding with this treatment plan and discharge. Differential Diagnosis Differential Diagnoses: The differential diagnosis associated with the presentation includes Fall Rib fracture Rib continusion Admission/Observation Consideration of admission/observation: Escalation of care including admission/observation considered Patient would have been admitted to the hospital had her work up had any findings where hospital admission was appropriate and her clinical presentation warranted hospital admission. Lab Data [facility] Lab Attestation statement: I reviewed the patient's lab results. My interpretation of these results are in the [facility] Rationale portion of this note. 05/13/25 08:54 05/13/25 08:54 Labs: Lab Results 05/13/25 Range/Units 08:54 WBC 9.1 (4.8-10.8) X10*3/uL RBC 4.89 (4.20-5.50) X10*6/uL Hgb 12.7 (12.0-16.0) g/dl Hct 38.3 (37.0-47.0) % MCV 78.3 L (80.0-98.0) fL MCH 26.0 L (27.0-33.0) pg MCHC 33.2 (31.0-35.0) g/dl RDW 16.7 H (11.0-16.0) % Plt Count 224 (160-400) X10*3/uL MPV 9.2 L (9.4-12.3) fL Immature Gran % (Auto) 1.2 H (0.0-0.4) % Neut % (Auto) 64.0 (45-73) % Lymph % (Auto) 21.9 (20-40) % Bulloch % (Auto) 10.1 (2-11) % Eos % (Auto) 2.0 (0-4) % Baso % (Auto) 0.8 (0-2) % Lymph # (Auto) 2.0 (1.2-4.9) X10*3/uL Bulloch # (Auto) 0.9 (0.1-1.2) X10*3/uL Eos # (Auto) 0.2 (0.0-0.4) X10*3/uL Baso # (Auto) 0.1 (0.0-0.2) X10*3/uL Abs Immat Gran (auto) 0.11 H (0.00-0.03) X10*3/uL Absolute Neuts (auto) 5.8 (2.0-8.3) x10*3/uL Absolute Nucleated RBC 0.000 (0.0-0.012) X10*3/uL Nucleated RBC % (auto) 0.0 (0.0-0.2) /100WBC PT 11.4 (10.9-12.4) SEC INR 1.0 (0.9-1.1) Sodium 141 (135-145) mmol/L Potassium 4.2 (3.3-5.1) mmol/L Chloride 107 (96-108) mmol/L Carbon Dioxide 27 (22-29) mmol/L Anion Gap 11 L (12-20) BUN 13 (9-16) mg/dL Creatinine 0.73 (0.5-1.4) mg/dL Estim Creat Clear Calc 53.9 Estimated GFR > 60 Random Glucose 140 H (60-115) mg/dL Calcium 9.0 (8.4-10.2) mg/dL Magnesium 1.8 (1.6-2.6) mg/dL Total Bilirubin 0.4 (0.0-1.0) mg/dL AST 18 (5-31) U/L ALT 16 (0-31) U/L Alkaline Phosphatase 59 (39-117) U/L Troponin I High Sens 3.7 (<3.5-17.0) ng/L Total Protein 7.2 (6.5-8.0) g/dL Albumin 4.1 (3.5-5.0) g/dL Independent Interpretation I performed an independent interpretation of an: CT Scan Interpretation: My interpretation is in agreement with the radiologist's impression of this imaging study. L Report Number: [id number]: Total DLP = 0.00 mGy-cm EXAMINATION: CT CHEST WITHOUT CONTRAST CLINICAL INFORMATION: Status post fall. Left-sided rib pain. COMPARISON: None available. TECHNIQUE: Multidetector volumetric CT imaging of the chest was done. Axial MIP volume rendering provided. Sagittal and coronal reformatted images were obtained. This CT examination was performed using dose optimization techniques as appropriate, variously including the following: *Automated exposure control *Adjustment of mA and/or kV according to patient size (this includes techniques or standardized protocols for targeted exams where dose is matched to indication/reason for exam; i.e. extremities or head) *Use of iterative reconstruction technique DLP: 235 mGy centimeter. FINDINGS: GIFT SHOP CLERK: Hyperinflated lungs. Cardiomediastinal silhouette size is enlarged likely related to a hiatal hernia. Patient's large body habitus. LUNGS: Linear attenuation abnormality is seen in the lower lung lobes, to a lesser extent right middle lung lobe and lingula. No bronchiectasis. No honeycombing. No gross pulmonary nodules. Respiratory airways patent. MEDIASTINUM: Mild prominent lymph nodes. Calcified plaques in the thoracic aorta. Calcified plaques in the main branches of the aorta mostly left subclavian artery. No aneurysm, abdominal aorta. Small volume pericardial effusion. No hemothorax. No pneumomediastinum. No hemopericardium. Hiatal hernia, moderate to large volume. The thyroid gland is not enlarged. CORONARY ARTERY CALCIFICATION: Calcified plaques. PLEURA: No pleural effusion. No pneumothorax. No hemothorax. No calcified pleural plaques. AXILLA: No lymphadenopathy. UPPER ABDOMEN: Hiatal hernia, moderate to large volume. Scattered diverticula, transverse colon. Probable small accessory spleen. Calcified plaques in the abdominal aorta and the origin of the right main renal artery. OSSEOUS STRUCTURES: Multilevel spondylosis without acute fracture or listhesis in the axial skeleton. Cortical irregularity in the posterior aspect of the left second rib near the costovertebral joint.. Old traumatic deformities with callus formation in the posterior aspect of the ribs, left hemithorax (third, fourth ribs). Sternum is intact. Scapula appears intact. CT/CT chest wo IV con IMPRESSION: Acute nondisplaced rib fracture at the costovertebral joint left second rib. No pneumothorax. Hiatal hernia, moderate to large volume. Coronary artery disease and atherosclerosis disease. Diverticular disease. Fleischner guidelines were followed. Electronically signed by: Herson Kingston MD 05/13/2025 09:35 AM EDT Dictated By: Herson Paulino MD Signed By: Electronically signed by Herson Oh MD 05/13/25 0935 I independently interpreted this EKG and am in agreement with the below findings: Vent. Rate: 73 BPM Atrial Rate: 73 BPM P-R Int: 208 ms QRS Dur: 140 ms QT Int: 442 ms P-R-T Axes: 42 69 -8 degrees QTcB Int: 486 ms Normal sinus rhythm Right bundle branch block When compared with ECG of 29-Dec-2022 11:33, Premature ventricular complexes are no longer Present Premature atrial complexes are no longer Present DD/ [id number] Radiology Impression Discussion of test interpretation with radiology: I have reviewed the radiologist's reading. Independent Historian Clinical information obtained from an independent historian. History obtained from or confirmed by: EMS (EMS provided additional history and confirmed the history provided by the patient. ) and Other (Patient's son provided additional history and confirmed the history provided by the patient. ) Discharge Plan Discharge Clinical Impression: Fracture of rib Patient Disposition: Xfer Other Transfer Details: Back to assisted living facility Instructions: Rib Fracture (ED) Additional Instructions: It is crucial you use the incentive spirometer for at least 10 minutes every 1 hour to avoid developing pneumonia. Follow up with a primary care provider. Return to the emergency department immediately if your symptoms worsen or if you develop any numbness, tingling, dizziness, shortness of breath, difficulty breathing, chest pain, blurry vision, loss of vision, nausea, vomiting, abdominal pain, fever, chills, back pain, or any other complaints. L If you do not have a primary care provider - call any of the below numbers to establish and follow up with a primary care provider. [facility] Primary Care ([place]) [phone] [place] [address], [address] [facility] Primary Care ([address] [place]) [phone] [place] [address], [address] [facility], [address] [facility] Primary Care ([address] [place]) [phone] [place] [address], [address] [facility], [address] [facility] Primary Care ([place]) [phone] [place] [address], [address] [facility], [address] [facility] Family Medicine [phone] [address] [facility], [address] Please see the information below about our Patient Portal. If you are not yet enrolled in the [facility] Patient Portal, you will receive an enrollment email invitation following your visit to any [facility] care setting. You may also self-enroll in the Patient Portal by visiting our website: [email or web address] The following information is required to access the Patient Portal: - Your [facility] Medical Record Number - Your personal home email address (must match what is in your electronic medical record, Registration staff can assist with this) - Name - Date of Capabilities of the Patient Portal: - Message some providers - View upcoming appointments - Access your health summary, medical history, and visit history - View current conditions and allergies - View procedure and lab results - View your medications, including guidelines, side effects, and precautions - Complete pre-appointment questionnaires requested by your provider - Ready summary reports of your office visits and procedures To access the Patient Portal Mobile [employer], follow these directions: - Search [employer] in the Leah Store or e[employer] Store - Download the Leah - Search for [facility] - Enter your login/password Discharge Date/Time: 05/13/25 10:21 Print Language: Persian
--- NOTE | 2025-05-13 08:36 | ECG_ITS ---
Test Reason : FALL Blood Pressure : */* mmHG Vent. Rate : 73 BPM Atrial Rate : 73 BPM P-R Int : 208 ms QRS Dur : 140 ms QT Int : 442 ms P-R-T Axes : 42 69 -8 degrees QTcB Int : 486 ms Normal sinus rhythm Right bundle branch block Abnormal ECG When compared with ECG of 29-Dec-2022 11:33, Premature ventricular complexes are no longer Present Premature atrial complexes are no longer Present Referred By: Isha Sandoval Electronically Signed By: Ming Alford
[2025-05-13 08:37] VITALS: BP 183/77; BP 190/90; PULSE 72; PULSE 74; RESP 14; TEMP 36.7; O2SAT 95; O2SAT 98; BMI 32.2
[2025-05-13 08:55] VITALS: BP 159/63; PULSE 75; RESP 13; TEMP 36.7; O2SAT 98
[2025-05-13 09:00] LABS: MANUAL DIFF FLAG NO
[2025-05-13 09:02] LABS: Hematocrit 38.3 % (37.0-47.0); Hemoglobin 12.7 g/dl (12.0-16.0); Imm Gran Abs Auto 0.11 X10*3/uL (0.00-0.03); Imm Gran Pct Auto 1.2 % (0.0-0.4); Lymphocytes Absolute Auto 2.0 X10*3/uL (1.2-4.9); Mean Corpuscular HGB Conc 33.2 g/dl (31.0-35.0); Mean Corpuscular Hemoglobin 26.0 pg (27.0-33.0); Mean Corpuscular Volume 78.3 fL (80.0-98.0); NRBC Abs Auto 0.000 X10*3/uL (0.0-0.012); NRBC Pct Auto 0.0 /100WBC (0.0-0.2); Platelet Count 224 X10*3/uL (160-400); Red Blood Count 4.89 X10*6/uL (4.20-5.50); White Blood Count 9.1 X10*3/uL (4.8-10.8)
[2025-05-13 09:11] LABS: INTERNATIONAL NORM RATIO 1.0 (0.9-1.1); Prothrombin Time 11.4 SEC (10.9-12.4)
[2025-05-13 09:14] LABS: Alanine Aminotransferase 16 U/L (0-31); Albumin Level 4.1 g/dL (3.5-5.0); Alkaline Phosphatase 59 U/L (39-117); Anion Gap 11 (12-20); Aspartate Amino Transferase 18 U/L (5-31); Blood Urea Nitrogen 13 mg/dL (9-16); Calcium 9.0 mg/dL (8.4-10.2); Carbon Dioxide 27 mmol/L (22-29); Chloride 107 mmol/L (96-108); Creatinine Clr Calc Pharmacy 53.9; Estimated Glomerular Filt Rate > 60; Magnesium 1.8 mg/dL (1.6-2.6); Potassium 4.2 mmol/L (3.3-5.1); Sodium 141 mmol/L (135-145); Total Protein 7.2 g/dL (6.5-8.0)
[2025-05-13 09:21] LABS: Troponin-I High Sensitivity 3.7 ng/L (<3.5-17.0)
--- OUTSIDE RECORDS SUMMARY | 2025-05-13 09:33 | XMS_ITS | Encounter Summary ---
Author Organization [facility] Address [address] [place] [address] Phone Care Team Providers Care Box Cutter Name Role Phone Vicente Gasca MD Primary Care Provider Ousmane Lehman MD Primary Care Provider [phone] Vicente Gasca MD Unavailable Sagrario John Primary Care Prov ider Saray Huang NP Primary Care Provider [phone] Encounter Details Date Type Department Care Team (Late st Contact Info) Description 06/19/2019 Procedure Pass [facility] Endoscopy Admitting Dept Virtual Department [address] [place] [address] Social History Tobacco Use Types Packs/Day Years Used Date Smoking Tobacco: Former Smokeless Tobacco: Never Alcohol Use Standard Drinks/Week Comments Yes 0 (1 standard drink = 0.6 oz pur e alcohol) some wine Comments Unknown Sex and Gender Information Value Date Recorded Sex Assigned at Female 09/15/2024 11:04 AM EST Legal Sex Female 3:52 PM EST Gender Identity Female 09/15/2024 11:04 AM EST Sexual Orientation Straight 09/15/2024 11 :04 AM EST documented as of this encounter Plan of Treatment Not on file documented as of this encounter Visit Diagnoses Not on filedocumented in this encounter Additional Health Concerns Infection Onset Date Last Indicated Resolved Time CoV-Risk 10/08/2020 10/08/2020 10/22/2020 1:25 AM EST documented as of this encounter Care Teams Box Cutter Relationship Specialty Start Date End Date Vicente Gasca MD [address] [facility] [address] [place] [address] [email or web address] PCP - General Family Medicine 03/26/18 09/13/24 Ousmane Lehman MD [address] [place] [address] [email or web address] PCP - General Family Medicine 09/14/24 09/14/24 Sagrario John PA [address] [place] [address] PCP - General Physician Evaporator Supervisor 09/15/24 02/09/25 Saray Huang NP [address] [place] [address] PCP - General Nurse Practitioner 02/10/25 Vicente Gasca MD [address] [facility] [address] [place] [address] [email or web address] 09/14/24 documented as of this encounter Additional Source Comments The information contained in this document represents components of the legal health record. It is not the complete legal health record.[facility]
[2025-05-13 09:59] VITALS: BP 173/72; PULSE 76; RESP 16; TEMP 36.8; O2SAT 96
--- NOTE | 2025-05-13 10:20 | PC.NURSE ---
patient given incentive spirometer, educate don use, return demonstration done by patient. patient dc with son tiffany, assisted with dressing and wheeled out in wheelchair.
== END 2025-05-13 10:21 | disposition other institution (70) ==
PROVIDERS: Physician Assistant Medical; Emergency Provider Emergency Medicine
DX: S22.32XA Fracture of one rib, left side, initial encounter for closed fracture (principal); R07.89 Other chest pain; I45.19 Other right bundle-branch block; R07.81 Pleurodynia; X58.XXXA Exposure to other specified factors, initial encounter; W19.XXXA Unspecified fall, initial encounter; Z91.81 History of falling; Y93.9 Activity, unspecified; Y92.003 Bedroom of unspecified non-institutional (private) residence as the place of occurrence of the external cause; Y99.8 Other external cause status; Z79.899 Other long term (current) drug therapy
CPT/HCPCS: 36415; 71250; 80053; 83735; 84484; 85025; 85610; 93005; 96372; 99283; 99284; J1885

== ENCOUNTER → 2025-05-13 08:36 | Outpatient (BNV) | payer MEDICARE, SELFPAY | PROVIDERS: Emergency Provider Emergency Medicine; Visit Provider Internal Medicine Cardiovascular Disease | DX: I45.10 Unspecified right bundle-branch block (principal) | CPT/HCPCS: 93010 ==

== ENCOUNTER → 2025-05-13 08:36 | Outpatient (BNV) | payer MEDICARE, SELFPAY | PROVIDERS: Emergency Provider Emergency Medicine; Visit Provider Radiology Diagnostic Radiology | DX: S22.32XA Fracture of one rib, left side, initial encounter for closed fracture (principal) | CPT/HCPCS: 71250 ==